=== PATIENT | male | born 1985 | race Caucasian/White ===

== ENCOUNTER 2016-07-23 08:53 | Emergency (ER) | END 2016-07-23 11:46 | disposition home or self-care (01) | DX: R51 Headache (principal) | CPT/HCPCS: 70450; Z7502; Z7610 ==

== ENCOUNTER 2017-04-03 12:46 | Emergency (ER) | payer OTHER ==
[~2017-04-03] VITALS: Ht 165.1 cm; Wt 90.0 kg
[~2017-04-03 12:46] MED LIST: IBUP800T25 PO
[2017-04-03 12:48] VITALS: Ht 165.1 cm; Wt 90.0 kg
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
[2017-04-03] MEDS ORDERED: IBUPROFEN 600 MG TAB PO ONE (13:30)
[2017-04-03] MEDS ORDERED: ACETAMINOPHEN 325 MG TAB PO ONE (13:30)
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
[2017-04-03] MEDS ORDERED: IBUP-1542 PO (14:41)
== END 2017-04-03 15:42 | disposition home or self-care (01) ==
LOC: FTE 12:46
DX: S43.402A Unspecified sprain of left shoulder joint, initial encounter (principal); S60.222A Contusion of left hand, initial encounter; V89.2XXA Person injured in unspecified motor-vehicle accident, traffic, initial encounter
CPT/HCPCS: 29125; 73030; 73130; Z7502; Z7610